=== PATIENT | female | born 1950 | race Caucasian/White ===

== ENCOUNTER 2018-12-13 14:59 | Inpatient (IN) | payer OTHER ==
[~2018-12-13] VITALS: Ht 170.2 cm; Wt 72.1 kg
[2018-12-13] MEDS ORDERED: ZESTRIL40 M1 (15:11)
[2018-12-13] MEDS ORDERED: ZOCOR40 MG (15:12)
--- NOTE | 2018-12-13 15:13 | NUR ---
SE RECIBE PTE ALERTA Y ORIENTADA X 3 ESFERAS, LA CUAL REFIERE HGB EN 7.0 EN LABORATORIO REALIZADO HOY. PTE REFIERE LLEVA MESES CON [place] RECTAL PARA EL CUAL COMENZO A RECIBIR TX CON LA DRA Mario MEI. SE UBICA EN AREA DE OBSERVACION.
--- NOTE | 2018-12-13 17:26 | NUR ---
SE ORIENTA A PTE SOBRE PROCESO DE VENOPUNCION, CHRIS DE MUESTRAS Y ADMINISTRACION DE MED, POR LA CUAL PTE REFIERE ENTENDER INF YASMEEN. AREA DE VENOPUNCION SE ANTHONY [place] DE EDEMA Y ENROJECIMIENTO. PTE SE EDUCA SOBRE PROCESO DE TRANSFUCION POR LO CUAL REFIERE ENTENDER INF YASMEEN PARA 3 UNIDADES DE TRANSFUCION.
== END 2018-12-15 10:05 | disposition home or self-care (01) | DRG 349 ==
LOC: ER 14:59 → SURH 18:09 → MEDJ 18:09 → SURH 20:21
PROVIDERS: Colon & Rectal Surgery; ADMIT Internal Medicine
PROC: 30233N1 Transfusion of Nonautologous Red Blood Cells into Peripheral Vein, Percutaneous Approach (ICD-10-PCS; 2018-12-13)
PROC: 3E0T3BZ Introduction of Anesthetic Agent into Peripheral Nerves and Plexi, Percutaneous Approach (ICD-10-PCS; 2018-12-14)
PROC: 06BY0ZC Excision of Hemorrhoidal Plexus, Open Approach (ICD-10-PCS; principal; 2018-12-14 18:00)
DX: K64.8 Other hemorrhoids (principal); K64.4 Residual hemorrhoidal skin tags; D50.0 Iron deficiency anemia secondary to blood loss (chronic); K64.1 Second degree hemorrhoids

== ENCOUNTER 2022-06-28 13:00 | Outpatient (CLI) | payer OTHER ==
[~2022-06-28 13:00] MED LIST: ZESTRIL40 M1; ZOCOR40 MG
== END 2022-06-28 13:10 | disposition home or self-care (01) ==
LOC: SONOGRAMA 13:00
PROVIDERS: ATTEND Pathology Anatomic Pathology & Clinical Pathology
DX: E04.1 Nontoxic single thyroid nodule (principal); E06.3 Autoimmune thyroiditis